=== PATIENT | female | born 1955 | race Caucasian/White ===

== ENCOUNTER 2022-03-04 13:58 | Outpatient (REF) | payer MEDICARE, SELFPAY ==
--- NOTE | ~2022-03-04 | XR_ITS ---
EXAMINATION: XR LUMBOSACRAL SPINE CLINICAL INFORMATION: Low back pain COMPARISON: None TECHNIQUE: Three views of the lumbosacral spine. FINDINGS: Lumbar vertebrae have normal height and normal alignment. There is no fracture or bone destruction Mild to moderate degenerative arthropathy. There is disc height narrowing and vertebral endplate spurring at the lower thoracic spine. There are bridging spurs at the lower thoracic spine. Mild disc height narrowing L4-L5. Small vertebral endplate spurs at L1 to L5. Mild to moderate facet joint arthrosis at lower lumbar spine. No spondylolysis. XR/XR lumbar spine 2-3V IMPRESSION: 1. No acute abnormality. 2. Degenerative spondylosis of lower thoracic and the lumbar spine.
== END 2022-03-04 13:59 | disposition home or self-care (01) ==
LOC: HO.XRAY 13:58
PROVIDERS: PCP Family Medicine; Visit Provider Psychiatry & Neurology Neurology
DX: M51.26 Other intervertebral disc displacement, lumbar region (principal)
CPT/HCPCS: 72100